=== PATIENT | male | born 1950 | race Asian ===

== ENCOUNTER 2019-12-06 05:52 | Day surgery (SDC) | payer MEDICARE, MEDICAID ==
[~2019-12-06] VITALS: Ht 167.6 cm; Wt 89.1 kg
[~2019-12-06 05:52] MED LIST: ALBU8HFA IH; BUDE10.2 IH; DILT360T14 PO; FLUT16H NASAL; IPRAHFA IH; MONT10TA21 PO; OMEP20 PO; PRAV20TA4 PO; PREDAOS OS; SODIUM CHLORIDE 0.9% 1,000 ML ONE; WARF2 PO
[2019-12-06] MEDS ORDERED: EPINEPHrine 1:1,000 [1 MG/ML] AMP IM ONE (05:53)
[2019-12-06] MEDS ORDERED: LIDOCAINE 4% 50 ML SOLUTION TP ONE (05:53)
[2019-12-06] MEDS ORDERED: LIDOCAINE 2% 30 ML JELLY TP ONE (05:53)
[2019-12-06] MEDS ORDERED: BENZOCAINE 20% 50 MCG/SPRAY 57 GM TP ONE (05:53)
[2019-12-06] MEDS ORDERED: ALBUTEROL SULFATE 2.5 MG/0.5 ML NEB SOLUTION NEB ONE (05:53)
[2019-12-06] MEDS ORDERED: SODIUM CHLORIDE 0.9% 1,000 ML IV ONE (07:00)
[2019-12-06] MEDS ORDERED: MIDAZOLAM HCL 2 MG/2 ML VIAL ONE (07:45)
[2019-12-06] MEDS ORDERED: FentaNYL CITRATE-PF 100 MCG/2 ML VIAL ONE (07:46)
[2019-12-06] MEDS ORDERED: MethylPREDNISolone SOD SUCC 125 MG/2 ML VIAL IVP ONE (09:00)
[2019-12-06] MEDS ORDERED: MethylPREDNISolone SOD SUCC 125 MG/2 ML VIAL ONE (09:13)
[2019-12-06] MEDS ORDERED: OXYGEN THERAPY IH SCH (20:00)
== END 2019-12-06 10:35 | disposition home or self-care (01) ==
LOC: SURGERY 05:52
PROVIDERS: ATTEND Internal Medicine Critical Care Medicine
DX: R05 Cough (principal); R91.8 Other nonspecific abnormal finding of lung field; J38.4 Edema of larynx; B37.0 Candidal stomatitis; J39.8 Other specified diseases of upper respiratory tract; J44.9 Chronic obstructive pulmonary disease, unspecified; I11.9 Hypertensive heart disease without heart failure; G47.33 Obstructive sleep apnea (adult) (pediatric); I48.91 Unspecified atrial fibrillation; E78.00 Pure hypercholesterolemia, unspecified; Z79.899 Other long term (current) drug therapy; Z87.891 Personal history of nicotine dependence; Z98.41 Cataract extraction status, right eye; Z98.42 Cataract extraction status, left eye; Z98.890 Other specified postprocedural states
CPT/HCPCS: 31623; 31624; 71045; 87015; 87070; 87101; 87205; 87206; 87220; 88108; 88184; 88185; 88312; J0171; J2250; J2930; J3010; J7030